=== PATIENT | male | born 1970 | race African-American/Black ===

== ENCOUNTER 2024-04-14 11:23 | Emergency (ER) | payer OTHER ==
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
[2024-04-14] MEDS ORDERED: KETOROLAC 30 MG/ML INJ ONE (14:52)
--- NOTE | 2024-04-14 17:47 | RAD REPORT ---
EXAMINATION: MRI LUMBAR SPINE WITHOUT CONTRAST CLINICAL INDICATION: Male, 53 years old. [facility] MAIN N LOWER BACK PAIN Bed Name: 5 TECHNIQUE: Multiplanar multisequence MR images were obtained of the lumbar spine without IV gadoliniu m contrast. Unless otherwise specified, incidental findings do not require dedicated imaging follow-up. COMPARISON: Lumbar spine CT of the same day FINDINGS: For purposes of this dictation, it is assumed that there are 5 non rib-bearing lumbar type vertebrae, and the most caudal fully segmented lumbar vertebra is labeled L5. ALIGNMENT: Straightening of normal lumbar lordosis which may be positional or secondary to muscle spa sm. The lumbar spine has normal alignment otherwise. BONE: Vertebral bodies are normal in height. There is a normal marrow signal pattern. CORD: No abnormal signal in the cord. The conus medullaris terminates at a normal level. The nerve ro ots of the cauda equina appear normal. SOFT TISSUE: The included paraspinal soft tissues and retroperitoneal structures are grossly normal. No abnormal masses or enhancement. EVALUATION OF THE INDIVIDUAL LEVELS: L1-2: Unremarkable. L2-3: Unremarkable. L3-4: Unremarkable. L4-5: Unremarkable. L5-S1: Broad-based posterior disc osteophyte complex, with a small central cranially migrated disc ex trusion. Overall moderate to advanced central canal stenosis, with asymmetric effacement of the left perineural fat along the descending left S1 root. Mild to moderate right and mild left neural fo raminal narrowing. IMPRESSION: Broad-based disc osteophyte complex at L5-S1, contributing to moderate to advanced central canal sten osis, and asymmetric effacement of the perineural fat along the descending left S1 nerve root. Please correlate for symptoms in that distribution. Mild to moderate right and mild left neural foraminal narrowing at L5-S1.
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
[2024-04-14 23:31] VITALS: BP 138/87; TEMP 97.2; O2SAT 99
== END 2024-04-14 18:56 | disposition home or self-care (01) ==
LOC: ER 11:23
DX: M54.17 Radiculopathy, lumbosacral region (principal); M54.50 Low back pain, unspecified; S39.92XA Unspecified injury of lower back, initial encounter; Y04.2XXA Assault by strike against or bumped into by another person, initial encounter; Y93.89 Activity, other specified; Y92.148 Other place in prison as the place of occurrence of the external cause; Y99.0 Civilian activity done for income or pay
CPT/HCPCS: 72131; 72148; 72192; 96372; 99284